=== PATIENT | female | born 1955 | race Caucasian/White ===

== ENCOUNTER 2018-08-06 07:49 | Day surgery (SDC) | payer OTHER ==
[2018-08-05 10:53] VITALS: BMI 22.8
[2018-08-06] MEDS ORDERED: MIDAZOLAM HCL 2 MG/2 ML SINGLE DOSE VIAL ONE (09:23)
[2018-08-06] MEDS ORDERED: LIDOCAINE HCL 2% (50ML VIAL) INF ONE (09:40)
[2018-08-06] MEDS ORDERED: ONDANSETRON 4 MG/2 ML VIAL IVPUSH PRN (09:46)
[2018-08-06] MEDS ORDERED: ACETAMINOPHEN 325 MG TABLET (FP) PO PRN (09:46)
[2018-08-06] MEDS ORDERED: oxyCODONE HCL 5 MG TABLET PO PRN (09:46)
[2018-08-06] MEDS ORDERED: LACTATED RINGERS SOLUTION 1,000 ML IV SCH (10:00)
[2018-08-06] MEDS ORDERED: oxyCODONE HCL 5 MG TABLET ONE (10:57)
[2018-08-06 11:03] VITALS: PULSE 84
[2018-08-06 11:23] VITALS: TEMP 98.6
[2018-08-06 11:52] VITALS: BP 102/60
--- NOTE | 2018-08-07 16:42 | OP ---
DATE OF OPERATION: 08/06/2018 PREOPERATIVE DIAGNOSIS: Right De Quervain tenosynovitis. POSTOPERATIVE DIAGNOSIS: Right De Quervain tenosynovitis. OPERATIVE PROCEDURE: Right De Quervain first dorsal compartment release. SURGEON: Shaheed Hughes M.D. ANESTHESIA: Local with sedation. COMPLICATIONS: None. ESTIMATED BLOOD LOSS: Minimal. INDICATION FOR PROCEDURE: The patient is a 63-year-old female with the above findings, indicated for operative treatment. Risks, benefits, and alternatives were discussed with the patient at length, proper informed consent was obtained. DESCRIPTION OF PROCEDURE: After proper identification of the patient and correct operative site, patient was brought to the operating room and placed supine on the operating room table, all bony prominences well padded. Sedation and local anesthesia were given. Right upper extremity was prepped and draped in the usual sterile fashion. Well padded tourniquet was placed with a sterile prep. Esmarch bandage to exsanguinate the right upper extremity. Tourniquet inflated to 250 mmHg. Transverse incisions were made within Joy's line of the right wrist over the radial styloid area. Incision was taken sharply through skin with blunt and sharp dissection subcutaneous tissue, taking care to protect neurovascular structures. The 1st dorsal compartment was identified and found to be thickened, and it was divided along its dorsal border. Multiple tendon slips were noted within the tunnel, but there was no evidence of a subcompartment. Wrist was taken through range of motion, and there was no evidence of subluxation. Wound was irrigated and repaired with a 4-0 Vicryl and 4-0 Monocryl suture. Steri-Strips and sterile dressings were applied. Patient brought to recovery in stable condition, he tolerated procedure well. SHAHEED HUGHES M.D. [id number]
== END 2018-08-06 11:35 | disposition home or self-care (01) ==
LOC: FASU 07:49
PROVIDERS: ATTEND Orthopaedic Surgery Hand Surgery
PROC: 0LN50ZZ Release Right Lower Arm and Wrist Tendon, Open Approach (ICD-10-PCS; principal; 2018-08-06 09:44)
DX: M65.4 Radial styloid tenosynovitis [de Quervain] (principal)

== ENCOUNTER 2021-03-01 08:55 | Day surgery (SDC) | payer OTHER ==
[2021-03-01 10:06] VITALS: BMI 24.3
[2021-03-01] MEDS ORDERED: MIDAZOLAM HCL 2 MG/2 ML SINGLE DOSE VIAL ONE (10:32)
[2021-03-01] MEDS ORDERED: PROPOFOL 20 ML ONE (10:32)
[2021-03-01] MEDS ORDERED: LIDOCAINE HCL/PF 2% SDV 5ML VIAL ONE (10:32)
[2021-03-01] MEDS ORDERED: LIDOCAINE HCL 2% (50ML VIAL) SQ ONE (11:29)
[2021-03-01] MEDS ORDERED: DEXAMETHASONE SOD PHOSPHATE 4 MG/1 ML VIAL ONE (11:34)
[2021-03-01] MEDS ORDERED: ONDANSETRON 4 MG/2 ML VIAL ONE (11:34)
[2021-03-01] MEDS ORDERED: GUM MASTIC/STORAX/MSAL/ALCOHOL 1 DRP DROPSBTL MC ONE (11:39)
[2021-03-01 12:02] VITALS: TEMP 98.1
[2021-03-01 12:18] VITALS: BP 108/60; PULSE 62
== END 2021-03-01 12:24 | disposition home or self-care (01) ==
LOC: FASU 08:55
PROVIDERS: ATTEND Orthopaedic Surgery Hand Surgery
PROC: 0LN60ZZ Release Left Lower Arm and Wrist Tendon, Open Approach (ICD-10-PCS; principal; 2021-03-01 10:30)
DX: M65.4 Radial styloid tenosynovitis [de Quervain] (principal)